=== PATIENT | male | born 1945 | race Caucasian/White ===

== ENCOUNTER 2016-04-03 09:55 | Day surgery (SDC) | payer MEDICARE ==
--- NOTE | 2016-04-01 15:10 | HP ---
DATE OF : 1945. HISTORY OF PRESENT ILLNESS: The patient is a 70-year-old male, nonhealing area, question infected cyst site on back and on antibiotics for the past month and there is now need of excision. He received cardiac clearance by Dr. Mcgraw. PAST MEDICAL HISTORY: Heart disease, lung disease, diabetes. 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 FAMILY HISTORY: Unknown per patient. ALLERGIES: Fish. No known drug allergies. SOCIAL HISTORY: No smoking, denies alcohol abuse. MEDICATIONS: Was provided by the patient included aspirin, Clopidogrel, Lipitor, metoprolol, Nitrostat, Zestril. SOCIAL HISTORY: No current smoking. Was a former smoker. REVIEW OF SYSTEMS: Ten systems reviewed per admission assessment. The patient has had heart disease, does have aortic stenosis and hypertension in addition to the above mentioned issues, some hyperlipidemia, had a PTCA in the past. PHYSICAL EXAMINATION: GENERAL: No acute distress. HEENT: Sclerae nonicteric. NECK: No JVD. CHEST: Equal excursions. Nonlabored breathing. CARDIOVASCULAR: Regular rhythm. ABDOMEN: Soft. Nondistended. EXTREMITIES: No edema. NEUROLOGICAL: Alert, moving extremities grossly symmetrically. The patient has an ulcerated nodule on the right arm as well as a infected ruptured cyst site on the back. IMPRESSION: Infected ruptured cyst site on the back as well as non-healing ulcerated area on the arm. Kennedy the patient would need excisional biopsy of both. The risks and benefits explained in detail not limited to bleeding and infection, risk of wound complications or dehiscence, possibly requiring packing, risk of involved margins considering these be malignancy, possibly requiring other procedures or wider excision. General risk of anesthesia, DVT, PE, pneumonia, risk of cardiopulmonary event given his comorbidities but not limited to. The patient understands, agrees to plan of procedure. We will proceed with excisional biopsy infected back cyst site on back, as well as excision nonhealing ulcerated right arm lesion as an outpatient.
[~2016-04-03 09:55] MED LIST: Lactated Ringers 1,000 ML IV ONE; Sensorcaine 0.25% 10 ML ONE
[2016-04-03] MEDS ORDERED: Pepcid 20 MG VIAL IV ONE ×2 (10:10→10:19)
[2016-04-03] MEDS ORDERED: BICITRA 30 ML CUP PO ONE (10:10)
[2016-04-03] MEDS ORDERED: Lactated Ringers 1,000 ML IV ONE (10:19)
[2016-04-03] MEDS ORDERED: BICITRA 30 ML CUP ONE (10:19)
[2016-04-03] MEDS ORDERED: Lactated Ringers 1,000 ML IV SCH (10:30)
[2016-04-03] MEDS ORDERED: DILAUDID 2 MG INJECTION ONE (13:34)
[2016-04-03] MEDS ORDERED: SUBLIMAZE 100 MCG/2 ML ONE (13:34)
--- NOTE | 2016-04-03 13:41 | OP ---
SURGERY DATE/TIME: 04/03/2016 1200 PREOPERATIVE DIAGNOSES: 1) Ruptured back cyst. 2) Nonhealing arm lesion. POSTOPERATIVE DIAGNOSES: 1) Ruptured back cyst. 2) Nonhealing arm lesion. PROCEDURES: 1) Excision and biopsy nonhealing right arm lesion (approximately 2.5 cm with margins) with intermediate closure. 2) Excisional biopsy ruptured back cyst site (approximately 5 cm with margins) with intermediate closure. SURGEON: Dr. Siddharth Dodson. FIRE CAPTAIN: Jayshree Hernandez, Medical Student III. ANESTHESIA: General. ESTIMATED BLOOD LOSS: Minimal. INDICATIONS: As noted above. Risks and benefits explained in detail and not limited to and consent obtained. DESCRIPTION OF PROCEDURE AND FINDINGS: The patient is taken to the operating room. General anesthesia was induced. Placed in lateral position. Appropriate padding position per anesthesia and OR staff. The arm, back and flank were prepped and draped in usual sterile fashion. After official time out and no disagreement with planned procedure, marking out to normal appearing skin on either side of this enlarging, nonhealing arm lesion was accomplished in spindle-shaped excision pattern approximately 4.5 to 5 cm long resulting in about 2.5 cm specimen with margins. Dissection carried down to normal appearing subcutaneous tissue beneath. An additional segment of subcutaneous fat was also taken directly posterior to the lesion as opposed to the margin to be sent separately. The specimen is passed off. Good hemostasis noted. It was then closed in layers with deep superficial subcu closed with 3-0 Vicryl. Skin closed with 4-0 Vicryl. Steri-Strips and sterile dressing applied. The patient tolerated this part of the procedure well. Attention is then turned to the ruptured back side that was draining some foul pus. Dissection in spindle-shaped fashion was accomplished dissecting out around this inflamed purulent area dissecting down to underlying subcutaneous all the way to underlying fashion underneath. The specimen is passed off and measured about 5 cm including the margins. Copious amount of irrigation irrigating until clear. Good hemostasis noted. Subcu and deep superficial subcu closed with 2-0 Vicryl. Skin closed with running 4-0 Vicryl, running subcuticular fashion. Interrupted 3-0 Prolene in a vertical mattress simple interrupted fashion used to reinforce the area given the fact that he had the foul pus. It was felt he would benefit from temporary drain placement. Packing wick drainage placement. Therefore 0.25 inch Iodoform placed down in there to be gradually advanced out about a centimeter or so per day until out. The patient tolerated the procedure well. Steri-Strips and sterile dressings applied. The patient tolerated the procedure well. There were no immediate complications. Findings discussed with the family out in the waiting area.
[2016-04-03] MEDS ORDERED: Ephedrine Sulfate 50 MG/ML IJ ONE (13:55)
[2016-04-03] MEDS ORDERED: VERSED 5 MG/5 ML IV ONE (13:55)
[2016-04-03] MEDS ORDERED: SUBLIMAZE 100 MCG/2 ML IV ONE (13:55)
[2016-04-03] MEDS ORDERED: PHENYLEPHRINE HCL IJ ONE (13:55)
[2016-04-03] MEDS ORDERED: Quelicin Fliptop 200 MG/10 ML IJ ONE (13:55)
[2016-04-03] MEDS ORDERED: DIPRIVAN 200 MG/20 ML IV ONE (13:55)
[2016-04-03] MEDS ORDERED: Zemuron 100 MG/10 ML IJ ONE (13:55)
[2016-04-03 15:54] VITALS: PULSE 68; O2SAT 95
[2016-04-03 15:58] VITALS: BP 119/76
== END 2016-04-03 15:10 | disposition home or self-care (01) ==
LOC: SDC 09:55
PROVIDERS: ATTEND Surgery
PROC: 0JQG0ZZ Repair Right Lower Arm Subcutaneous Tissue and Fascia, Open Approach (ICD-10-PCS; principal; 2016-04-03)
PROC: 0HBDXZX Excision of Right Lower Arm Skin, External Approach, Diagnostic (ICD-10-PCS; 2016-04-03)
PROC: 0JQ70ZZ Repair Back Subcutaneous Tissue and Fascia, Open Approach (ICD-10-PCS; 2016-04-03)
PROC: 0HB6XZX Excision of Back Skin, External Approach, Diagnostic (ICD-10-PCS; 2016-04-03)
DX: D23.61 Other benign neoplasm of skin of right upper limb, including shoulder (principal); L27.0 Generalized skin eruption due to drugs and medicaments taken internally; L98.8 Other specified disorders of the skin and subcutaneous tissue; I51.9 Heart disease, unspecified; J98.4 Other disorders of lung; E11.9 Type 2 diabetes mellitus without complications; E78.5 Hyperlipidemia, unspecified; I10 Essential (primary) hypertension; I35.0 Nonrheumatic aortic (valve) stenosis; Z79.899 Other long term (current) drug therapy
CPT/HCPCS: 00300; 00400; 36415; 87070; 88304; 88305; J0330; J1170; J2250; J2370; J2704; J3010